=== PATIENT | male | born 1950 | race African-American/Black ===

== ENCOUNTER 2025-02-26 01:06 | Emergency (ER) | payer OTHER, MEDICAID ==
[~2025-02-26] VITALS: Ht 172.7 cm; Wt 68.0 kg
[2025-02-26 01:09] VITALS: O2SAT 100
[2025-02-26 02:08] LABS: BASOPHILS % 0.7 % (0.0-2.0); EOSINOPHILS % 7.2 % (0.0-5.0); HEMATOCRIT. 37.1 % (42.0-52.0); HEMOGLOBIN. 11.7 g/dL (14.0-18.0); MEAN CORPUSCULAR HEMOGLOBIN 26.2 pg (28.0-32.0); MEAN CORPUSCULAR HGB CONC 31.4 g/dL (31.0-37.0); MEAN CORPUSCULAR VOLUME 83.2 fL (80.0-94.0); MEAN PLATELET VOLUME 10.4 fl (7.4-10.4); MONOCYTES % 12.6 % (2.0-8.0); NEUTROPHILS % 52.5 % (40.0-76.0); PLATELET 178 x1000/uL (130-400); RED BLOOD CELL COUNT 4.46 mill/uL (4.7-6.1); RED CELL DISTRIBUTION WIDTH 14.3 % (11.6-14.6); WHITE BLOOD COUNT 5.7 x1000/uL (4.5-11.0)
[2025-02-26 02:18] LABS: CHLORIDE 106 mEq/L (98-107); POTASSIUM 4.5 mEq/L (3.5-5.1); SODIUM 141 mEq/L (136-145)
[2025-02-26 02:19] LABS: CALCIUM 9.2 mg/dL (8.7-10.4); CARBON DIOXIDE 29 mEq/L (21-32)
[2025-02-26 02:24] LABS: CREATININE 3.6 mg/dL (0.6-1.3); ETHANOL BLOOD < 10 mg/dL (<10); GLUCOSE 238 mg/dL (70-105); UREA NITROGEN BLOOD 32 mg/dL (9-23)
[2025-02-26 02:26] LABS: ACETAMINOPHEN < 2 ug/mL (10-30)
[2025-02-26] MEDS: HYDRALAZINE 20MG/ML VIAL IV ONE (02:56)
[2025-02-26 03:04] LABS: *AMPHETAMINES SCREEN URINE NEGATIVE (NEGATIVE); *BARBITURATES SCREEN URINE NEGATIVE (NEGATIVE); *BENZODIAZEPINES SCREEN URINE NEGATIVE (NEGATIVE); *COCAINE SCREEN URINE NEGATIVE (NEGATIVE); CANNABINOID URINE SCREEN NEGATIVE (NEGATIVE); ECSTASY MDMA SCREEN URINE NEGATIVE (NEGATIVE); METHADONE URINE SCREEN NEGATIVE (NEGATIVE); OPIATES URINE SCREEN NEGATIVE (NEGATIVE); PHENCYCLIDINE URINE SCREEN NEGATIVE (NEGATIVE)
[2025-02-26] MEDS: ATENOLOL 25MG TABLET PO NR (03:30)
[2025-02-26] MEDS: HYDROCHLOROTHIAZIDE 25MG TABLET PO NR (03:30)
[2025-02-26 22:43] LABS: CLARITY URINE CLEAR (CLEAR); COLOR URINE YELLOW (YELLOW); GLUCOSE URINE 2+ (NEGATIVE); KETONES URINE TRACE (NEGATIVE); LEUKOCYTE ESTERASE URINE NEGATIVE (NEGATIVE); NITRITE URINE NEGATIVE (NEGATIVE); OCCULT BLOOD URINE TRACE (NEGATIVE); PH URINE 6.5 (4.5-8.0); PROTEIN URINE 4+ (NEGATIVE); UROBILINOGEN URINE 0.2 E.U./dL (0.2-1.0)
[2025-02-26 22:54] LABS: RBC URINE 0-2 /hpf (0-2); SQUAMOUS EPITHELIAL CELL URINE NONE SEEN /lpf (RARE/1+); WBC URINE 0-2 /hpf (0-2)
[2025-02-26 22:55] LABS: BACTERIA URINE NONE SEEN
[2025-02-27] MEDS: OLANZAPINE 10 MG/VIAL IM STA (07:57)
[2025-02-27 08:10] VITALS: TEMP 36.8
[2025-02-27 09:23] VITALS: BP 158/87; PULSE 66; RESP 18; O2SAT 98
== END 2025-02-27 10:00 ==
LOC: ER 01:06
DX: F29 Unspecified psychosis not due to a substance or known physiological condition (principal); F03.918 Unspecified dementia, unspecified severity, with other behavioral disturbance; F03.92 Unspecified dementia, unspecified severity, with psychotic disturbance; I10 Essential (primary) hypertension; Z20.822 Contact with and (suspected) exposure to COVID-19; Z79.899 Other long term (current) drug therapy
CPT/HCPCS: 80305; 80048; 81003; 80307; 80329; 80320; 85025; 36415; 71045; 70450; 93005; 96374; 99285; 87426; 96372; J0360; J3490; A4606; G0480